=== PATIENT | male | born 2000 | race African-American/Black ===

== ENCOUNTER 2021-01-25 09:11 | Emergency (ER) | payer OTHER ==
[~2021-01-25] VITALS: Ht 170.2 cm; Wt 83.2 kg
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
[2021-01-25] MEDS ORDERED: ISOVUE-370 76% 100ML VIAL As Ordered ONE (09:49)
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
[2021-01-25 11:13] VITALS: BP 131/65
== END 2021-01-25 11:22 | disposition home or self-care (01) ==
LOC: M ED 09:11
DX: S30.1XXA Contusion of abdominal wall, initial encounter (principal); S20.219A Contusion of unspecified front wall of thorax, initial encounter; V48.5XXA Car driver injured in noncollision transport accident in traffic accident, initial encounter; N28.1 Cyst of kidney, acquired
CPT/HCPCS: 71100; 74177; 99284; Q9967

== ENCOUNTER 2022-12-04 14:45 | Emergency (ER) | payer OTHER ==
[~2022-12-04] VITALS: Ht 167.6 cm; Wt 86.3 kg
[2022-12-04 14:47] VITALS: BP 132/62
== END 2022-12-04 17:06 | disposition left against medical advice (07) ==
LOC: M ED 17:02
DX: Z53.21 Procedure and treatment not carried out due to patient leaving prior to being seen by health care provider (principal)